=== PATIENT | female | born 1975 | race Caucasian/White ===

== ENCOUNTER 2016-11-14 15:35 | Inpatient (IN) | payer OTHER ==
[~2016-11-14] VITALS: Ht 157.5 cm; Wt 111.5 kg
[2016-11-14] MEDS ORDERED: LIDOCAINE 1%, 10ML INFIL ONE (16:00)
[2016-11-14 16:15] LABS: HEMATOCRIT 38.3 % (34.6-47.8); HEMOGLOBIN 12.6 g/dL (11.7-16.4); WHITE BLOOD COUNT 14.4 x10^3/uL (3.4-10)
[2016-11-14 16:25] LABS: BLOOD UREA NITROGEN 14 mg/dL (7-18)
[2016-11-14] MEDS ORDERED: MORPHINE SULFATE 4 MG/ML, 1ML ONE (16:25)
[2016-11-14] MEDS ORDERED: SODIUM CHLORIDE 0.9% 1,000ML IVBOLUS ONE (16:30)
[2016-11-14] MEDS ORDERED: SODIUM CHLORIDE FLUSH 10ML SYR IVF ONE (16:30)
[2016-11-14] MEDS ORDERED: AMPICILLIN/SULBACTAM 3 GM in SODIUM CHLORIDE 0.9% 100 ML IVPB ONE (16:30)
[2016-11-14] MEDS ORDERED: PHARMACOKINETIC CONSULTATION MC ONE ×2 (16:30→22:30)
[2016-11-14] MEDS ORDERED: VANCOMYCIN 2,000 MG in SODIUM CHLORIDE 0.9% 500 ML IV ONE (16:30)
[2016-11-14] MEDS ORDERED: VANCOMYCIN PER PHARMACY MC ONE (16:30)
[2016-11-14] MEDS ORDERED: MORPHINE SULFATE 4 MG/ML, 1ML IV PRN (16:30)
[2016-11-14 16:33] LABS: DIFF TOTAL CELLS COUNTED 100 CELL DIFF
[2016-11-14 16:37] LABS: VERIFY COUNTS? YES
[2016-11-14] MEDS ORDERED: MIDAZOLAM 1 MG/ML, 2ML ONE (20:01)
[2016-11-14] MEDS ORDERED: FENTANYL PF 100 MCG/2ML ONE ×3 (20:01→21:05)
[2016-11-14] MEDS ORDERED: ONDANSETRON 2MG/ML, 2ML ONE (20:04)
[2016-11-14] MEDS ORDERED: SUCCINYLCHOLINE 20 MG/ML, 10ML ONE (20:04)
[2016-11-14] MEDS ORDERED: PROPOFOL 10 MG/ML, 20ML ONE (20:04)
[2016-11-14] MEDS ORDERED: DEXAMETHASONE 4 MG/ML, 1ML ONE (20:04)
[2016-11-14] MEDS ORDERED: DIAZEPAM 5 MG/ML, 2ML IVPush PRN (20:30)
[2016-11-14] MEDS ORDERED: LABETALOL 5MG/ML, 20ML IV PRN (20:30)
[2016-11-14] MEDS ORDERED: ALBUTEROL/IPRATROPIUM 2.5MG/0.5MG, 3 ML NPPB PRN (20:30)
[2016-11-14] MEDS ORDERED: MIDAZOLAM 1 MG/ML, 2ML IV PRN (20:30)
[2016-11-14] MEDS ORDERED: ACETAMINOPHEN 325 MG TABLET PO PRN (20:30)
[2016-11-14] MEDS ORDERED: OXYcodone 5 MG/5 ML ORAL.SOL UDC PO PRN (20:30)
[2016-11-14] MEDS ORDERED: ONDANSETRON 2MG/ML, 2ML IVPush PRN (20:30)
[2016-11-14] MEDS ORDERED: MEPERIDINE/PF 25MG/0.5ML IVPush PRN (20:30)
[2016-11-14] MEDS ORDERED: HYDROmorphone 1 MG/ML, 1ML IV PRN (20:30)
[2016-11-14] MEDS ORDERED: hydrALAzine 20 MG/ML, 1ML IV PRN (20:30)
[2016-11-14] MEDS ORDERED: PROMETHAZINE 25 MG/ML, 1ML IV PRN (20:30)
[2016-11-14] MEDS: FENTANYL PF 100 MCG/2ML IV PRN ×2 (21:05→21:18)
[2016-11-14] MEDS ORDERED: OXYcodone 5 MG/5 ML ORAL.SOL UDC ONE (21:05)
[2016-11-14] MEDS ORDERED: ACETAMINOPHEN 650 MG/20.3 ML UDC ONE (21:05)
[2016-11-14 22:19] VITALS: BP 144/82
[2016-11-14] MEDS ORDERED: CLINDAMYCIN PMX 900MG/50ML 50 ML IV SCH (22:30)
[2016-11-14] MEDS ORDERED: PHARMACOKINETIC MONITORING MC PRN (22:30)
[2016-11-14] MEDS ORDERED: VANCOMYCIN PER PHARMACY MC PRN (22:30)
[2016-11-14] MEDS ORDERED: PIPERACILLIN/TAZO/PMX 3.375GM 50 ML IV SCH (22:30)
[2016-11-14] MEDS: PIPERACILLIN/TAZO/PMX 3.375GM 50 ML IV SCH (22:41)
[2016-11-14] MEDS ORDERED: VANCOMYCIN 1,600 MG in SODIUM CHLORIDE 0.9% 250 ML IV SCH (23:00)
[2016-11-14] MEDS: CLINDAMYCIN PMX 900MG/50ML 50 ML IV SCH (23:24)
[2016-11-15 01:52] VITALS: BP 137/77
[2016-11-15] MEDS: OXYcodone/APAP 5/325MG TABLET PO PRN ×5 (02:06→16:58)
[2016-11-15] MEDS: PIPERACILLIN/TAZO/PMX 3.375GM 50 ML IV SCH ×4 (04:18→22:14)
[2016-11-15] MEDS ORDERED: IBUP-1484 PO (04:32)
[2016-11-15 04:49] LABS: HEMATOCRIT 37.1 % (34.6-47.8); HEMOGLOBIN 12.3 g/dL (11.7-16.4); WHITE BLOOD COUNT 16.5 x10^3/uL (3.4-10)
[2016-11-15] MEDS: VANCOMYCIN 1,600 MG in SODIUM CHLORIDE 0.9% 250 ML IV SCH ×2 (05:10→17:00)
[2016-11-15 05:16] LABS: ASPARTATE AMINO TRANSFERASE 15 U/L (15-37); BLOOD UREA NITROGEN 12 mg/dL (7-18)
[2016-11-15] MEDS: CLINDAMYCIN PMX 900MG/50ML 50 ML IV SCH ×3 (07:01→22:52)
[2016-11-15 07:23] VITALS: BP 106/69
[2016-11-15] MEDS: ENOXAPARIN 30 MG/0.3 ML SQ SCH ×2 (12:56→22:52)
[2016-11-15 13:36] VITALS: BP 103/68
[2016-11-15 18:21] VITALS: BP 134/71
[2016-11-15] MEDS: MORPHINE SULFATE 4 MG/ML, 1ML IV PRN ×2 (22:14→22:51)
[2016-11-16 01:36] VITALS: BP 120/78
[2016-11-16] MEDS: OXYcodone/APAP 5/325MG TABLET PO PRN ×5 (03:54→20:09)
[2016-11-16 04:47] LABS: HEMATOCRIT 33.8 % (34.6-47.8); HEMOGLOBIN 11.1 g/dL (11.7-16.4); WHITE BLOOD COUNT 15.2 x10^3/uL (3.4-10)
[2016-11-16 05:01] LABS: BLOOD UREA NITROGEN 17 mg/dL (7-18)
[2016-11-16] MEDS: PIPERACILLIN/TAZO/PMX 3.375GM 50 ML IV SCH ×4 (05:19→23:52)
[2016-11-16] MEDS: VANCOMYCIN 1,600 MG in SODIUM CHLORIDE 0.9% 250 ML IV SCH ×2 (06:05→20:09)
[2016-11-16 07:32] VITALS: BP 115/73
[2016-11-16] MEDS: ONDANSETRON 2MG/ML, 2ML IV PRN ×3 (08:50→22:32)
[2016-11-16] MEDS: CLINDAMYCIN PMX 900MG/50ML 50 ML IV SCH ×3 (08:50→22:33)
[2016-11-16] MEDS ORDERED: D5%-0.45NACL+KCL 20MEQ 1,000 ML IV SCH (09:30)
[2016-11-16 13:54] VITALS: BP 116/81
[2016-11-16] MEDS: ENOXAPARIN 30 MG/0.3 ML SQ SCH (18:32)
[2016-11-16 19:40] VITALS: BP 122/82
[2016-11-16] MEDS ORDERED: BISACODYL 10 MG SUPP PR ONE (20:00)
[2016-11-16] MEDS ORDERED: PROMETHAZINE 25 MG/ML, 1ML ONE (20:03)
[2016-11-16] MEDS: DOCUSATE 100 MG CAPSULE PO SCH (20:09)
[2016-11-16] MEDS: PROMETHAZINE 25 MG/ML, 1ML IM PRN (20:10)
[2016-11-16] MEDS: MORPHINE SULFATE 4 MG/ML, 1ML IV PRN (22:32)
[2016-11-17 01:48] VITALS: BP 114/76
[2016-11-17 04:52] LABS: HEMATOCRIT 34.2 % (34.6-47.8); HEMOGLOBIN 11.2 g/dL (11.7-16.4); WHITE BLOOD COUNT 13.3 x10^3/uL (3.4-10)
[2016-11-17 05:16] LABS: ASPARTATE AMINO TRANSFERASE 25 U/L (15-37); BLOOD UREA NITROGEN 23 mg/dL (7-18)
[2016-11-17] MEDS: ONDANSETRON 2MG/ML, 2ML IV PRN ×3 (05:17→22:51)
[2016-11-17] MEDS: PIPERACILLIN/TAZO/PMX 3.375GM 50 ML IV SCH (05:18)
[2016-11-17] MEDS: ENOXAPARIN 30 MG/0.3 ML SQ SCH (05:18)
[2016-11-17] MEDS: OXYcodone/APAP 5/325MG TABLET PO PRN ×2 (05:18→09:46)
[2016-11-17] MEDS: CLINDAMYCIN PMX 900MG/50ML 50 ML IV SCH (06:23)
[2016-11-17 07:32] VITALS: BP 127/74
[2016-11-17] MEDS: VANCOMYCIN 1,600 MG in SODIUM CHLORIDE 0.9% 250 ML IV SCH (09:14)
[2016-11-17] MEDS: PROMETHAZINE 25 MG/ML, 1ML IM PRN (09:19)
[2016-11-17] MEDS: DOCUSATE 100 MG CAPSULE PO SCH ×2 (09:22→21:00)
[2016-11-17] MEDS ORDERED: SODIUM CHLORIDE 0.9% 1,000 ML IV SCH (10:30)
[2016-11-17] MEDS: MORPHINE SULFATE 4 MG/ML, 1ML IV PRN ×2 (11:50→22:52)
[2016-11-17 14:11] VITALS: BP 127/66
[2016-11-17] MEDS: SULFAMETH./TRIMETHOPRIM DS 800MG/160MG TABLET PO SCH (20:38)
[2016-11-17] MEDS: SODIUM CHLORIDE 0.45% 1,000 ML IV SCH (20:39)
[2016-11-17 20:41] VITALS: BP 128/85
[2016-11-18 02:10] VITALS: BP 120/82
[2016-11-18] MEDS: SODIUM CHLORIDE 0.45% 1,000 ML IV SCH ×3 (04:18→21:00)
[2016-11-18] MEDS: OXYcodone/APAP 5/325MG TABLET PO PRN ×4 (04:38→19:37)
[2016-11-18] MEDS: ENOXAPARIN 30 MG/0.3 ML SQ SCH (04:42)
[2016-11-18 04:53] LABS: HEMATOCRIT 33.5 % (34.6-47.8); WHITE BLOOD COUNT 13.3 x10^3/uL (3.4-10)
[2016-11-18 05:03] LABS: BLOOD UREA NITROGEN 20 mg/dL (7-18)
[2016-11-18 07:52] VITALS: BP 119/71
[2016-11-18] MEDS: DOCUSATE 100 MG CAPSULE PO SCH ×2 (09:08→19:37)
[2016-11-18] MEDS: SULFAMETH./TRIMETHOPRIM DS 800MG/160MG TABLET PO SCH ×2 (09:09→19:37)
[2016-11-18] MEDS: MORPHINE SULFATE 4 MG/ML, 1ML IV PRN ×2 (14:53→15:02)
[2016-11-18 16:23] VITALS: BP 124/64
[2016-11-18 19:59] VITALS: BP 136/81
[2016-11-19 01:46] VITALS: BP 132/84
[2016-11-19] MEDS: PROMETHAZINE 25 MG/ML, 1ML IM PRN (01:52)
[2016-11-19] MEDS: OXYcodone/APAP 5/325MG TABLET PO PRN ×2 (04:31→11:15)
[2016-11-19] MEDS: ENOXAPARIN 30 MG/0.3 ML SQ SCH (04:35)
[2016-11-19] MEDS: SODIUM CHLORIDE 0.45% 1,000 ML IV SCH ×2 (05:00→13:34)
[2016-11-19 05:13] LABS: HEMATOCRIT 34.6 % (34.6-47.8); HEMOGLOBIN 11.4 g/dL (11.7-16.4); WHITE BLOOD COUNT 14.1 x10^3/uL (3.4-10)
[2016-11-19 05:32] LABS: BLOOD UREA NITROGEN 19 mg/dL (7-18)
[2016-11-19 07:04] VITALS: BP 126/84
[2016-11-19] MEDS: SULFAMETH./TRIMETHOPRIM DS 800MG/160MG TABLET PO SCH (07:49)
[2016-11-19] MEDS: DOCUSATE 100 MG CAPSULE PO SCH (07:49)
[2016-11-19] MEDS ORDERED: SULF1TAB24 PO (09:13)
[2016-11-19] MEDS ORDERED: OXYC-302 PO (09:13)
[2016-11-19 13:59] VITALS: BP 122/80
== END 2016-11-19 15:57 | disposition home or self-care (01) | DRG 600 ==
LOC: ED 17:52 → EDIP 18:50 → 3NW 22:05
PROVIDERS: ADMIT Surgery; ATTEND Surgery
PROC: 0H9TXZX (ICD-10-PCS; 2016-11-14)
PROC: 0HD5XZZ Extraction of Chest Skin, External Approach (ICD-10-PCS; principal; 2016-11-14 19:30)
DX: N61.1 Abscess of the breast and nipple (principal); Z68.42 Body mass index [BMI] 45.0-49.9, adult; E66.9 Obesity, unspecified; Z80.3 Family history of malignant neoplasm of breast; K21.9 Gastro-esophageal reflux disease without esophagitis
CPT/HCPCS: 36415; 76642; 80048; 80053; 82040; 83605; 84703; 85025; 87015; 87040; 87070; 87075; 87077; 87102; 87116; 87186; 87205; 87206; 96365; 96368; 96375; J0295; J1100; J1650; J2250; J2405; J2543; J2550; J2704; J3010; J3370; J0330; J3480; J7030; J7040; J7050

== ENCOUNTER → 2019-12-21 | Outpatient (CLI) | payer OTHER ==
[~2019-12-21] MED LIST: IBUP-1902 PO; OXYC-302 PO; SULF1TAB24 PO
== END | disposition home or self-care (01) ==
LOC: CFH 10:01
PROVIDERS: ATTEND Nurse Practitioner
DX: Z12.31 Encounter for screening mammogram for malignant neoplasm of breast (principal); Z80.3 Family history of malignant neoplasm of breast
CPT/HCPCS: 76641; 77063; 77067